=== PATIENT | female | born 1950 | race Caucasian/White ===

== ENCOUNTER 2018-10-09 12:45 | Outpatient (CLI) | payer MEDICARE, OTHER ==
--- NOTE | 2018-10-09 13:59 | MRI ---
[facility] lumbar spine noncontrast: DATE: 10/09/2018 HISTORY: 68-year-old female with lumbar radiculopathy M54.16. Lumbar stenosis. M 48.061 COMPARISON: 08/28/2015 FINDINGS: For the purposes of this report, it will be assumed that there are 5 lumbar-type vertebrae. Conus medullaris terminates at L1. Vertebral body heights are maintained. Multiple bilateral parapelv ic renal cysts.. T12-L1:Normal L1-2:Minimal disc bulge. Otherwise normal. L2-3:Mild to moderate ligamentum flavum thickening. Mild bilateral facet DJD. Mild bilateral neural f oraminal stenosis. Mild diffuse disc bulge. Mild to moderate disc space narrowing. Mild to moderate c entral spinal canal stenosis, apparently minimally worse than previously. L3-4:Severe disc space narrowing. Numerous tiny Schmorl's nodes. Modic type II endplate marrow change s. Moderate diffuse disc bulge. Mild bilateral neural foraminal stenosis. Moderate ligamentum flavum thickening with mild to moderate facet DJD bilaterally. Moderate central spinal canal stenosis and la teral recess stenosis. The degree of central stenosis actually appears slightly improved compared to 2016. L4-5:Moderate to severe right facet DJD. Mild to moderate left facet DJD. Moderate ligamentum flavum thickening. Mild grade 1 anterolisthesis of L4 on L5. Moderate disc space narrowing, severe on the ri ght where there are prominent Modic type I marrow edema changes. These right-sided degenerative acevedo es and marrow edema are similar to prior study. There is severe central spinal canal stenosis and sev ere lateral recess stenosis, right greater than left. The severe central stenosis has worsened. Moder ate bilateral neural foraminal stenosis as not significantly worsened on the right, slightly worsened on the left.. L5-S1:Lateral recess stenosis bilaterally. Mild central stenosis. Diffuse disc bulge. Somewhat severe disc space narrowing with endplate irregularity. Mixed Modic type I and type II marrow endplate delgadillo ges. Mild to moderate bilateral neural foraminal stenosis. Degenerative facet changes are mild. No ma yrn interval change. IMPRESSION: 1. Lumbar spondylosis with multilevel high-grade degenerative disc disease, and facet osteoarthrosis of varying degrees. 2. Severe central spinal canal stenosis and lateral recess stenosis at L4-5. This has slightly worsen ed since 2016. 3. Moderate central spinal canal stenosis at L3-4.
--- NOTE | 2018-10-09 14:11 | RAD ---
XR Lumbar Spine Bending Min 4V History: [M 54.16 Lumbar radiculopathy] Comparison: MRI lumbar spine same day Findings: No acute fracture or malalignment. Multilevel degenerative disc space narrowing, worst at L 3-S1. No significant listhesis. No translation with flexion or extension. Minimal 1 to 2 mm L2-L3 ret rolisthesis. Impression: No translation with flexion or extension.
== END 2018-10-09 12:46 | disposition home or self-care (01) ==
LOC: TBSIIMAG 12:45
PROVIDERS: ATTEND Surgery
DX: M48.061 Spinal stenosis, lumbar region without neurogenic claudication (principal); M51.16 Intervertebral disc disorders with radiculopathy, lumbar region; M47.26 Other spondylosis with radiculopathy, lumbar region
CPT/HCPCS: 72120; 72148

== ENCOUNTER 2019-02-27 08:28 | Day surgery (SDC) | payer MEDICARE, OTHER ==
[2019-02-26 08:39] VITALS: BMI 20.9
[2019-02-27] MEDS ORDERED: Sodium Chloride 0.9% 10 ML ONE (08:53)
[2019-02-27] MEDS ORDERED: Thrombin 5000 UNITS/5 ML VIAL ONE (08:53)
[2019-02-27 08:54] LABS: #Eosinphils 0.1 thou/uL (0.0-0.7); #Lymphocytes 1.6 thou/uL (1.20-3.40); #Monocytes 0.4 thou/uL (0.11-0.59); #Neutrophils 2.4 thou/uL (1.40-6.50); %Eosinophils 1.2 % (0.0-10.0); %Lymphocytes 35.1 % (21.0-51.0); %Monocytes 9.2 % (0.0-10.0); %Neutrophils 53.4 % (42.0-75.0); Mean Corpuscular Hemoglobin 31.1 pg (27.0-31.0); Mean Corpuscular Volume 94.1 fL (78.0-98.0); Mean Platelet Volume 7.8 fL (7.4-10.4); Platelet Count 247 thou/uL (130-400); RBC Distribution Width 12.2 % (11.5-14.5); White Blood Cell (WBC) Count 4.6 thou/uL (4.8-10.8)
[2019-02-27 09:01] LABS: Prothrombin Time 13.3 SEC (12.0-14.7)
[2019-02-27 09:02] LABS: PTT 29.5 SEC (22.9-36.1)
[2019-02-27 09:13] LABS: Anion Gap 13 mmol/L (10-20); BUN (Urea Nitrogen) 12 mg/dL (9.8-20.1); Calc. Creatinine Clearance 64 mL/min (70-130); Calcium 9.2 mg/dL (7.8-10.44); Carbon Dioxide 26 mmol/L (23-31); Chloride 104 mmol/L (98-107); Estimated GFR-MDRD 77; Glucose 88 mg/dL (80-115); Sodium 139 mmol/L (136-145)
[2019-02-27] MEDS ORDERED: Fentanyl 100 MCG/2 ML VIAL ONE ×3 (09:50→12:46)
[2019-02-27] MEDS ORDERED: Rocuronium Bromide 10 MG/ML (10ML VIAL) ONE (11:23)
[2019-02-27] MEDS ORDERED: Glycopyrrolate 0.2 MG/ML 5 ML SYRINGE ONE (11:23)
[2019-02-27] MEDS ORDERED: Lidocaine 1% PF 5 ML VIAL ONE (11:23)
[2019-02-27] MEDS ORDERED: Ondansetron PF 4 MG/2 ML Vial ONE (11:23)
[2019-02-27] MEDS ORDERED: PHENYLEPHRINE-NS 100 MCG/ML 10 ML SYRINGE ONE (11:23)
[2019-02-27] MEDS ORDERED: PROPOFOL 200 MG/20 ML VIAL ONE (11:23)
[2019-02-27] MEDS ORDERED: Ketorolac Tromethamine 30 MG/ML VIAL ONE (11:23)
[2019-02-27] MEDS ORDERED: Dexamethasone 20 MG/5 ML VIAL ONE (11:23)
[2019-02-27] MEDS ORDERED: Midazolam HCl 2 mg/2 ml Vial ONE (12:18)
[2019-02-27] MEDS ORDERED: HYDROmorphone 2 MG/ML VIAL SLOW IVP PRN (12:33)
[2019-02-27] MEDS ORDERED: PACU-Morphine 4MG/ML VIAL SLOW IVP PRN (12:33)
[2019-02-27] MEDS ORDERED: Morphine Sulfate 2 MG/ML SYRINGE SLOW IVP PRN (12:33)
[2019-02-27] MEDS ORDERED: Promethazine HCl 25 MG/ML VIAL SLOW IVP PRN ×2 (12:33→12:39)
[2019-02-27] MEDS ORDERED: Promethazine HCl 25 MG/ML VIAL IM PRN (12:33)
[2019-02-27] MEDS ORDERED: Ondansetron HCl/PF 4 MG/2 ML Vial IVP PRN (12:33)
[2019-02-27] MEDS ORDERED: Fleet Enema 133 ML BOT PR PRN (12:39)
[2019-02-27] MEDS ORDERED: traMADol HCl 50 MG TAB PO PRN (12:39)
[2019-02-27] MEDS ORDERED: Morphine 2 MG/ML SYRINGE SLOW IVP PRN (12:39)
[2019-02-27] MEDS ORDERED: Bisacodyl 10 MG SUPP PR PRN (12:39)
[2019-02-27] MEDS ORDERED: Mag-Al 1200 mg/1200 mg/30 ML UDCUP PO PRN (12:39)
[2019-02-27] MEDS ORDERED: Milk Of Magnesia 30 ML UDCUP PO PRN (12:39)
[2019-02-27] MEDS ORDERED: Acetaminophen 325 MG TAB PO PRN (12:39)
[2019-02-27] MEDS ORDERED: HYDROmorphone 0.5 MG/0.5 ML SYRINGE ONE ×4 (13:18→17:10)
[2019-02-27] MEDS: CEFAZOLIN 2 GM in Premix Bag 1 BAG IVPB SCH (19:10)
[2019-02-27] MEDS: Sodium Chloride 0.9% 1,000 ML IV SCH (19:11)
[2019-02-28] MEDS: HYDROcodone/Acetaminophen 7.5/325 mg Tablet PO PRN ×2 (01:42→10:04)
[2019-02-28] MEDS: CEFAZOLIN 2 GM in Premix Bag 1 BAG IVPB SCH (01:43)
[2019-02-28] MEDS ORDERED: Estradiol 1 MG TAB PO SCH (09:00)
[2019-02-28] MEDS ORDERED: Ferrous Sulfate 325 MG TAB PO SCH (09:00)
--- NOTE | 2019-02-28 09:54 | PRG ---
DATE OF SERVICE: 02/28/2019 Ms. Frye is postoperative day 1 from lumbar decompression. She is doing well with resolution in her leg pain. She has been mobilizing and neurologically is intact. We went over both intra and postoperative issues. She will be dismissed. Job ID: [id number]
[2019-02-28] MEDS: Sodium Chloride 0.9% 1,000 ML IV SCH (09:57)
[2019-02-28 11:10] VITALS: BP 101/61; TEMP 98.5
--- NOTE | 2019-02-28 11:57 | OP ---
DATE OF PROCEDURE: 02/27/2019 LOCATION: OR 12. WOUND CLASSIFICATION: Type 1 wound. ANIMAL SKINNER: Jorge East PA-C PREPROCEDURE DIAGNOSIS: Lumbar stenosis with low back and leg pain. POSTPROCEDURE DIAGNOSIS: Lumbar stenosis with low back and leg pain. PROCEDURE PERFORMED: L3-L4, L4-L5, L5-S1 laminectomies, partial facetectomies, and foraminotomies. DESCRIPTION OF PROCEDURE: After informed consent was obtained from the patient, the patient was brought to the OR. Proper patient, pause, and identification were carried out. She was placed under excellent endotracheal anesthesia and positioned prone on the OR table. All appropriate points were padded. We identified the L3, L4, L5, and S1 dorsal spines and lamina. A linear kristin was made. This region was sterilely cleansed, prepared, and draped. Proper patient, pause, and identification were carried out. We then identified the segments and localization film confirmed area of interest. We then performed L3, L4, L5, and S1 laminectomies, partial facetectomies, and foraminotomies. Copious irrigation occurred throughout as did maximizing hemostasis. The wound was then closed in anatomic layers following sprinkling of vancomycin powder. The patient was then emerged from anesthesia. Job ID: [id number]
== END 2019-02-28 12:30 | disposition home or self-care (01) ==
LOC: SDC 08:28 → SJJU 12:39 → SDC 02-28 12:30
PROVIDERS: ATTEND Surgery
PROC: 01NB0ZZ Release Lumbar Nerve, Open Approach (ICD-10-PCS; principal; 2019-02-27)
DX: M48.061 Spinal stenosis, lumbar region without neurogenic claudication (principal); M54.16 Radiculopathy, lumbar region; I10 Essential (primary) hypertension; J45.909 Unspecified asthma, uncomplicated; K21.9 Gastro-esophageal reflux disease without esophagitis; Z79.899 Other long term (current) drug therapy; Z88.8 Allergy status to other drugs, medicaments and biological substances
CPT/HCPCS: 36415; 76000; 80048; 85025; 85610; 85730; 93005; 93010; J0690; J1100; J1170; J1885; J2001; J2250; J2405; J2704; J3010; J3370; J3490